=== PATIENT | male | born 1995 | race Caucasian/White ===

== ENCOUNTER 2024-10-17 16:28 | Emergency (ER) | payer OTHER, SELFPAY ==
[2024-10-17 16:29] VITALS: BP 146/75; PULSE 106; RESP 17; TEMP 36.6; O2SAT 100; BMI 23.1
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
--- NOTE | 2024-10-17 18:11 | ED.RN ---
Patient given meal tray.
[2024-10-17] MEDS: Acetaminophen 500 MG Tablet 1000 MG PO (18:20)
[2024-10-17 18:23] VITALS: BP 146/75; PULSE 106; RESP 17; TEMP 36.6; O2SAT 100
[2024-10-17 18:37] VITALS: PULSE 90; RESP 14; O2SAT 99
--- NOTE | 2024-10-17 18:38 | ED.RN ---
Patient tolerated PO challenge. Given yogurt.
== END 2024-10-17 19:01 | disposition home or self-care (01) ==
PROVIDERS: Emergency Provider Emergency Medicine; PCP Family Medicine; Visit Provider Emergency Medicine
DX: R45.4 Irritability and anger (principal); F41.9 Anxiety disorder, unspecified
CPT/HCPCS: 99282